=== PATIENT | male | born 1985 | race American Indian/Alaskan Native ===

== ENCOUNTER 2018-11-20 09:08 | Emergency (ER) | payer OTHER ==
[2018-11-20 09:15] VITALS: BP 124/74
--- NOTE | 2018-11-20 10:03 | Emergency Department Report ---
ED Laceration HPI - HPI Chief Complaint: Wound/Laceration Stated Complaint: (L) FINGER CUT/PAIN Time Seen by Provider: 11/20/18 09:38 Occurred When: Yesterday Location: Upper Extremity Severity: mild Tetanus Status: Up to Date Laceration Symptoms: Yes Pain, No Foreign Body Sensation, No Numbness, No Weakness Other History: 33-year-old male presents to the ED with superficial laceration of the left middle finger, sustained while cutting tomatoes yesterday. Patient states he washed the finger thoroughly with soap and water and apply peroxide as well. Patient states he is here because he needs a work excuse. ED Review of Systems ROS: Stated complaint: (L) FINGER CUT/PAIN Other details as noted in HPI Comment: All other systems reviewed and negative Constitutional: denies: fever Musculoskeletal: as per HPI. denies: joint swelling ED Past Medical Hx - Past Medical History Previous Medical History?: No - Surgical History Past Surgical History?: No - Social History Smoking Status: Never Smoker Substance Use Type: Marijuana Laceration Physical Exam - Exam General: Vital signs noted. No distress. Alert and acting appropriately. Wound Length (cm): 2 (very superficial laceration) Laceration Location: Upper Extremity (left middle finger, distal tip) Laceration Exam: Yes Normal Distal CMS, No Foreign Body, No Exposed Tendon, Vessel, or Nerve, No Tendon Injury ED Course Vital Signs 11/20/18 09:13 Temperature 97.9 F Pulse Rate 70 Respiratory 16 Rate Blood Pressure 124/74 O2 Sat by Pulse 99 Oximetry ED Medical Decision Making - Medical Decision Making - superficial laceration, no sutures needed - no evidence of infection - pt afebrile - advised to keep clean and dry - motrin/ tylenol for pain - return precautions given Critical care attestation.: If time is entered above; I have spent that time in minutes in the direct care of this critically ill patient, excluding procedure time. ED Disposition Clinical Impression: Superficial laceration Disposition: DC-01 TO HOME OR SELFCARE Is pt being admited?: No Condition: Stable Instructions: Finger Laceration (ED) Referrals: MENDEZ OWEN MD [Primary Care Provider] - 3-5 Days Forms: Work/School Release Form(ED) Time of Disposition: 10:03
== END 2018-11-20 10:10 | disposition home or self-care (01) ==
LOC: ED 09:08
DX: S61.213A Laceration without foreign body of left middle finger without damage to nail, initial encounter (principal); F12.10 Cannabis abuse, uncomplicated; W45.8XXA Other foreign body or object entering through skin, initial encounter; Y93.89 Activity, other specified; Y92.89 Other specified places as the place of occurrence of the external cause; Y99.8 Other external cause status